=== PATIENT | male | born 2005 | race Caucasian/White ===

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

== ENCOUNTER 2024-02-02 10:17 | Emergency (ER) | payer MEDICAID, OTHER ==
[~2024-02-02] VITALS: Ht 182.9 cm; Wt 62.3 kg
[2024-02-02 10:22] VITALS: BP 126/83; PULSE 95; RESP 16; TEMP 97.7; O2SAT 100
[2024-02-02] MEDS: LIDOcaine 1% W/epiNEPHrine 1:100,000 20ml vial SQ STA (11:32)
[2024-02-02] MEDS ORDERED: SULF1TAB49 PO (12:42)
== END 2024-02-02 12:53 | disposition home or self-care (01) ==
LOC: ER 10:17
DX: N48.21 Abscess of corpus cavernosum and penis (principal); Z88.0 Allergy status to penicillin; Z79.1 Long term (current) use of non-steroidal anti-inflammatories (NSAID); Z79.899 Other long term (current) drug therapy
CPT/HCPCS: 10060; 99283; J3490; A6449

== ENCOUNTER 2024-04-14 16:33 | Emergency (ER) | payer MEDICAID ==
[~2024-04-14] VITALS: Ht 185.4 cm; Wt 59.0 kg
[2024-04-14 16:38] VITALS: TEMP 98.2
[2024-04-14 17:13] LABS: BILIRUBIN,URINE NEGATIVE (Neg); CLARITY,URINE CLEAR (Clear); COLOR,URINE YELLOW (Yellow); GLUCOSE, URINE NEGATIVE (Neg); KETONES,URINE 15 mg/dl (Neg); LEUKOCYTE ESTERASE ,URINE NEGATIVE (Neg); NITRITES, URINE NEGATIVE (Neg); OCCULT BLOOD,URINE NEGATIVE (Neg); PROTEIN,URINE 30 mg/dl (Neg); UROBILINOGEN,URINE 0.2 E.U/dL (0.2-1.0)
[2024-04-14 17:17] LABS: UA COLLECTION TYPE CLN CATCH MIDSTREAM
[2024-04-14 17:17] LABS: ALANINE AMINOTRANSFERASE 15 U/L (12-78); ALBUMIN 4.9 G/DL (3.4-5.0); ALBUMIN/GLOBULIN RATIO 1.4 (1.1-1.5); ALKALINE PHOSPHATASE 69 IU/L (20-180); ANION GAP 14 (8-16); ASPARTATE AMINO TRANSFERASE 19 U/L (10-37); BILIRUBIN,TOTAL 1.3 MG/DL (0.1-1.0); BLOOD UREA NITROGEN 14 MG/DL (7-18); BUN/CREATININE RATIO 15.6 (10.0-20.0); CALCIUM 9.1 MG/DL (8.5-10.1); CHLORIDE 105 MMOL/L (99-107); GLUCOSE 129 MG/DL (70-104); HEMATOCRIT 45.4 % (42.0-52.0); HEMOGLOBIN 15.4 g/dl (14.0-17.9); LIPASE 29 U/L (16-77); MEAN CORPUSCULAR HEMOGLOBIN 31.4 PG (27.0-31.0); MEAN CORPUSCULAR HGB CONC 33.9 g/dL (33.0-36.5); MEAN CORPUSCULAR VOLUME 92.7 FL (78-98); MEAN PLATELET VOLUME 8.3 FL (7.4-10.4); PLATELET COUNT 271 X10'3 (140-440); POTASSIUM 3.4 MMOL/L (3.5-5.1); RED BLOOD COUNT 4.89 X10'6 (4.70-6.10); RED CELL DISTRIBUTION WIDTH 13.2 % (11.5-14.5); SODIUM 145 MMOL/L (135-145); TOTAL CARBON DIOXIDE 26.1 MMOL/L (24-32); TOTAL PROTEIN 8.4 G/DL (6.4-8.2); WHITE BLOOD COUNT 15.8 X10'3 (4.5-11.0); eCRCL 110 ML/MIN; eGFR > 90 ML/MIN
[2024-04-14 17:18] LABS: BACTERIA,URINE NONE SEEN /HPF (Neg); MUCUS STRANDS MODERATE /LPF (Neg); RBC,URINE 0-2 /HPF (0-2); SQUAMOUS EPITHELIAL CELL,UR FEW /LPF (FEW); WBC,URINE NONE SEEN /HPF (0-4)
[2024-04-14 17:44] LABS: PLATELET ESTIMATE NORMAL; TOTAL CELLS COUNTED 100
[2024-04-14] MEDS: diphenhydrAMINE 50 mg/ml inj IV ONE (18:37)
[2024-04-14] MEDS: glycopyrrolate 0.2mg/ml inj IV ONE (18:41)
[2024-04-14] MEDS: metoclopramide 5 mg/ml inj IV ONE (18:41)
[2024-04-14] MEDS: normal saline 1000ML IV soln IVB ONE ×2 (18:41→19:11)
[2024-04-14] MEDS: ketorolac trometh 30MG/ML vial 30 MG/ML VIAL IV ONE (18:45)
[2024-04-14] MEDS ORDERED: ONDA-243 PO (20:27)
[2024-04-14] MEDS: proCHLORperazine 10 MG/2 ml inj IV ONE (20:35)
[2024-04-14] MEDS: normal saline 1000ml 1,000 ML IV ONE (20:40)
[2024-04-14 21:15] VITALS: BP 91/55; PULSE 87; RESP 16; O2SAT 99
== END 2024-04-14 21:16 | disposition home or self-care (01) ==
LOC: ER 16:33
DX: R10.11 Right upper quadrant pain (principal); R11.2 Nausea with vomiting, unspecified; R19.7 Diarrhea, unspecified; F12.90 Cannabis use, unspecified, uncomplicated; Z88.0 Allergy status to penicillin; Z79.1 Long term (current) use of non-steroidal anti-inflammatories (NSAID); Z79.899 Other long term (current) drug therapy; Z79.52 Long term (current) use of systemic steroids
CPT/HCPCS: 36415; 80053; 81001; 83690; 84145; 85007; 85025; 96361; 96374; 96375; 99285; J1200; J1885; J2765; J3490; J7030

== ENCOUNTER 2024-06-13 12:58 | Emergency (ER) | payer MEDICAID ==
[~2024-06-13] VITALS: Ht 185.4 cm; Wt 65.5 kg
[2024-06-13 16:40] VITALS: BP 124/66; PULSE 80; RESP 16; TEMP 98.8; O2SAT 98
== END 2024-06-13 16:41 | disposition home or self-care (01) ==
LOC: ER 12:59
DX: S61.012A Laceration without foreign body of left thumb without damage to nail, initial encounter (principal); F15.90 Other stimulant use, unspecified, uncomplicated; Z88.0 Allergy status to penicillin; W26.0XXA Contact with knife, initial encounter; Y93.89 Activity, other specified; Y92.89 Other specified places as the place of occurrence of the external cause; Y99.8 Other external cause status
CPT/HCPCS: 12001; 99282

== ENCOUNTER 2024-08-18 11:59 | Emergency (ER) | payer MEDICAID ==
[~2024-08-18] VITALS: Ht 185.4 cm; Wt 62.1 kg
[2024-08-18 12:35] LABS: CLARITY,URINE CLOUDY (Clear); COLOR,URINE AMBER (Yellow)
[2024-08-18 12:39] LABS: UA COLLECTION TYPE CLN CATCH MIDSTREAM
[2024-08-18 12:45] LABS: BACTERIA,URINE 1+ /HPF (Neg); RBC,URINE 0-2 /HPF (0-2); WBC,URINE 30-50 /HPF (0-4)
[2024-08-18 12:46] LABS: AMORPHOUS URATES 1+; FINE GRANULAR CAST 0-3 /LPF (NEGATIVE); MUCUS STRANDS MANY /LPF (Neg); SQUAMOUS EPITHELIAL CELL,UR NONE SEEN /LPF (FEW)
[2024-08-18 12:47] LABS: WBC CLUMPS,URINE FEW /HPF (NEGATIVE)
[2024-08-18 13:04] LABS: BASOPHILS # (AUTO) 0.1 X10'3 (0-0.2); BASOPHILS % (AUTO) 0.5 % (0-1); EOSINOPHILS % (AUTO) 0.1 % (0-6); HEMOGLOBIN 17.1 g/dl (14.0-17.9); LYMPHOCYTES # (AUTO) 1.2 X10'3 (1.1-4.8); LYMPHOCYTES % (AUTO) 11.6 % (21-51); MEAN CORPUSCULAR HEMOGLOBIN 31.7 PG (27.0-31.0); MEAN CORPUSCULAR HGB CONC 34.2 g/dL (33.0-36.5); MEAN CORPUSCULAR VOLUME 92.9 FL (78-98); MEAN PLATELET VOLUME 9.1 FL (7.4-10.4); MONOCYTES # (AUTO) 0.5 X10'3 (0-0.9); MONOCYTES % (AUTO) 4.6 % (2-12); NEUTROPHILS # (AUTO) 8.6 X10'3 (1.8-7.7); NEUTROPHILS % (AUTO) 83.2 % (42-75); PLATELET COUNT 295 X10'3 (140-440); RED BLOOD COUNT 5.38 X10'6 (4.70-6.10); WHITE BLOOD COUNT 10.4 X10'3 (4.5-11.0)
[2024-08-18 13:15] LABS: ALANINE AMINOTRANSFERASE 23 U/L (12-78); ALBUMIN 5.3 G/DL (3.4-5.0); ALBUMIN/GLOBULIN RATIO 1.6 (1.1-1.5); ALKALINE PHOSPHATASE 86 IU/L (20-180); ANION GAP 11 (8-16); ASPARTATE AMINO TRANSFERASE 29 U/L (10-37); BILIRUBIN,TOTAL 3.3 MG/DL (0.1-1.0); BLOOD UREA NITROGEN 15 MG/DL (7-18); BUN/CREATININE RATIO 14.9 (10.0-20.0); CALCIUM 9.8 MG/DL (8.5-10.1); CHLORIDE 105 MMOL/L (99-107); CREATININE 1.01 MG/DL (0.60-1.10); GLUCOSE 137 MG/DL (70-104); LIPASE 16 U/L (16-77); SODIUM 142 MMOL/L (135-145); TOTAL CARBON DIOXIDE 26.5 MMOL/L (24-32); TOTAL PROTEIN 8.6 G/DL (6.4-8.2); eCRCL 102 ML/MIN; eGFR > 90 ML/MIN
[2024-08-18 13:21] VITALS: BP 130/88; PULSE 131; RESP 16; TEMP 98.5; O2SAT 97
[2024-08-18] MEDS ORDERED: normal saline 1000ml 1,000 ML IV STA ×2 (13:27)
[2024-08-18] MEDS ORDERED: OLANZapine **IM** 10 mg inj. IM ONE (13:30)
== END 2024-08-18 15:07 | disposition left against medical advice (07) ==
LOC: ER 12:00
DX: R11.2 Nausea with vomiting, unspecified (principal); Z88.0 Allergy status to penicillin; Z88.8 Allergy status to other drugs, medicaments and biological substances
CPT/HCPCS: 36415; 80053; 81001; 83690; 85025; 87088; 99283